=== PATIENT | male | born 1960 | race Caucasian/White ===

== ENCOUNTER 2018-05-27 09:09 | Emergency (ER) | payer BC, SELFPAY ==
[2018-05-27 09:18] VITALS: BP 148/83; PULSE 79; RESP 18; TEMP 36.7; O2SAT 98
--- NOTE | 2018-05-27 09:27 | ED.GENADUL_ITS ---
Discharge Plan Disposition Patient Disposition: HOME Condition: Improving Discharge Details Chief Complaint: RespSymp Clinical Impression: Acute bronchitis ED Provider: Dominick Buckner Home Meds and New Rx's Prescriptions: New guaifenesin [Mucinex] 600 mg tablet extended release 12hr 600 mg PO Q12H PRNQty: 10 RF: 0 benzonatate [Tessalon Perles] 100 mg capsule 100 mg PO TID PRN (Reason: cough) Qty: 14 RF: 0 azithromycin 250 mg tablet See Rx Instructions .ROUTE .COMPLEX Qty: 6 RF: 0 Discharge Instructions Instructions: Acute Bronchitis (ED) Additional Instructions: Follow-up with regular doctor in [place] if not improved in 5 days time. Return to the emergency department for any acute concerns. As we discussed, you may use Tessalon and Mucinex as prescribed along with small, frequent sips of fluids to maintain hydration and Tylenol if needed for aches, pains, fever. Begin antibiotics if not improved in 24-36-hour Medical Decision Making 57-year-old male with 4-5 days of cough, congestion, increasing production of sputum with associated subjective fever and chills. He lives in [place] and works as a director of program management. Vital signs are essentially unremarkable. He has a bronchitis, difficult to differentiate viral versus bacterial. As he is from out of the area, we discussed a plan of prescription in the pocket with symptomatic management over the next 24-36 hours at which point if he is improved, no antibiotics, otherwise we will initiate a course of azithromycin. Stable for discharge at this time. He understands return precautions to the ED. HPI General Mode of arrival: ambulatory . Date/Time Provider Initiated Documentation: 05/27/18 09:20 . Limitations to Documentation: no limitations . Information obtained by: patient . History of Present Illness 57 year old M presents to the emergency department with the chief complaint of 4 days upper respiratory illness, described as moderate, Quality is described as aching, and is localized to the chest. Patient reports no radiation. Patient st arted experiencing this day(s) and it has been intermittent. No relieving factors improve symptom(s), No exacerbating factors reported . Patient notes cough and fever/chills; denies nausea/vomiting. Related Data Home Medications Medication Instructions Recorded Confirmed azithromycin See Rx Instructions .ROUTE 05/27/18 .COMPLEX #6 tab benzonatate [Tessalon Perles] 100 mg PO TID PRN #14 cap 05/27/18 guaifenesin [Mucinex] 600 mg PO Q12H PRN #10 tab 05/27/18 Previous Rx's Medication Instructions Recorded azithromycin See Rx Instructions .ROUTE 05/27/18 .COMPLEX #6 tab benzonatate [Tessalon Perles] 100 mg PO TID PRN #14 cap 05/27/18 guaifenesin [Mucinex] 600 mg PO Q12H PRN #10 tab 05/27/18 Allergies Allergy/AdvReac Type Severity Reaction Status Date / Time No Known Allergies Allergy Unverified 05/27/18 09:22 General Stated Complaint: RespSymp ENOC: 4 Review of Systems Review of Systems 6 systems reviewed and otherwise - PFSH Social History Smoking/Tobacco Use Status: Never Exam Narrative Exam Narrative: GEN: awake, alert, oriented 3. Pleasant, well groomed, interactive. HEAD: Normocephalic, atraumatic ENT: Mucous membranes moist, oropharynx unremarkable, External ear exam unremarkable EYES: PERRL, EOMI NECK: Full ROM, no JEAN, no menigismus CHEST/RESP: Nontender, clear to auscultation bilateral, no wheeze/rhonchi/rales, cough noted CARDIOVASCULAR: RRR, no murmur, rub simone. 2+ Rad pulse bilateral ABDOMEN: Soft, nontender, no mass. +Bowel sounds EXT: Full ROM, no edema, no rash Neuro: Grossly normal neurologic exam, conversant, interactive. Psych: Speech fluent, thoughts congruent, affect normal Course Vital Signs Temperature 36.7 C 05/27/18 09:18 Pulse 79 05/27/18 09:18 Respiratory Rate 18 05/27/18 09:18 Blood Pressure 148/83 H 05/27/18 09:18 Pulse Oximetry 98 05/27/18 09:18 Temperature 36.7 C 05/27/18 09:18 Temperature Source Skin 05/27/18 09:18 Pulse 79 05/27/18 09:18 Respiratory Rate 18 05/27/18 09:18 Respiratory Effort 05/27/18 09:20 Blood Pressure 148/83 H 05/27/18 09:18 Blood Pressure Position Sitting 05/27/18 09:18 Pulse Oximetry 98 05/27/18 09:18 Pain Level 2 05/27/18 09:18
== END 2018-05-27 09:50 | disposition home or self-care (01) ==
PROVIDERS: Emergency Provider Emergency Medicine
DX: J20.9 Acute bronchitis, unspecified (principal)
CPT/HCPCS: 99283